=== PATIENT | male | born 1955 | race Caucasian/White ===

== ENCOUNTER 2016-10-15 10:34 | Emergency (ER) | payer BC ==
[2016-10-15 10:58] VITALS: BP 117/77
[2016-10-15] MEDS ORDERED: Bacitracin Oint 1 GM U/D Packet TOP ONE (11:08)
--- NOTE | 2016-10-15 11:34 | EDM.PDOC ---
ED HPI GENERAL MEDICAL PROBLEM - General Chief Complaint: Laceration Stated Complaint: CUT RT HAND Time Seen by Provider: 10/15/16 11:34 Source of Information: Reports: Patient History Limitations: Reports: No Limitations - History of Present Illness INITIAL COMMENTS - FREE TEXT/NARRATIVE: pt cut the palm of his left hand with a piece of metal. Onset: Today Duration: Hour(s): Location: Reports: Upper Extremity, Right Associated Symptoms: Reports: No Other Symptoms - Related Data Allergies Allergy/AdvReac Type Severity Reaction Status Date / Time No Known Allergies Allergy Verified 10/15/16 11:07 Home Meds: Home Meds Aspirin [Halfprin] 81 mg PO DAILY 10/04/15 [History] Rosuvastatin [Crestor] 20 mg PO DAILY 10/04/15 [History] Metoprolol Succinate 25 mg PO DAILY 10/15/16 [History] Past Medical History Cardiovascular History: Reports: Angina Gastrointestinal History: Reports: Chronic Diarrhea - Infectious Disease History Infectious Disease History: Reports: Chicken Pox - Past Surgical History Other Musculoskeletal Surgeries/Procedures:: knee surgery Social & Family History - Tobacco Use Smoking Status *Q: Never Smoker - Recreational Drug Use Recreational Drug Use: No ED ROS GENERAL - Review of Systems Review Of Systems: See Below Constitutional: Reports: No Symptoms HEENT: Reports: No Symptoms Respiratory: Reports: No Symptoms Cardiovascular: Reports: No Symptoms Endocrine: Reports: No Symptoms : Reports: No Symptoms Skin: Reports: Other ( 1 inch laceration on the louise aspect of the rt hand. He cut this on a piece of metal. He is current with his tetanus. ) ED EXAM, SKIN/RASH Exam: See Below Text/Narrative:: pt arrived with a 1 inch cut on the louise aspect of the rt hand. He has normal sensation and normal motion. Exam Limited By: No Limitations General Appearance: Alert, Anxious Ears: Normal External Exam Nose: Normal Inspection Extremities: Other ( Pt has a 1 inch laceration on the louise aspect of his rt hand. ) Psychiatric: Normal Affect Course - Vital Signs Last Recorded V/S: Last Vital Signs Temp 34.8 C L 10/15/16 10:56 Pulse 61 10/15/16 11:09 Resp 16 10/15/16 11:09 BP 117/77 10/15/16 11:09 Pulse Ox 96 10/15/16 11:09 - Orders/Labs/Meds Meds: Medications Discontinued Medications Generic Name Dose Route Start Last Admin Trade Name Niharika PRN Reason Stop Dose Admin Bacitracin 1 dose 10/15/16 11:08 10/15/16 11:26 Bacitracin Oint 1 Gm TOP 10/15/16 11:09 1 dose ONETIME ONE Administration Lidocaine HCl 5 ml 10/15/16 11:07 10/15/16 11:26 Xylocaine-Mpf 1% INJECT 10/15/16 11:08 5 ml ONETIME ONE Administration - Re-Assessments/Exams Free Text/Narrative Re-Assessment/Exam: 10/15/16 11:39 tHE AREA WAS CLEANSED WELL AND INFILTRATED WITH LIDOCAINE. iT WAS CLOSED WITH 5-0 PROLENE. THE WOUND WAS DRESSED WITH BACATRACIN. Departure - Departure Time of Disposition: 11:33 Disposition: Home, Self-Care 01 Condition: Fair Clinical Impression: Laceration - Discharge Information Referrals: PCP,None [Primary Care Provider] - Forms: ED Department Discharge Care Plan Goals: keep dry, apply dry dressing daily, sr in 7-8 days.
== END 2016-10-15 12:06 | disposition home or self-care (01) ==
LOC: JP.ED 10:34
DX: S61.412A Laceration without foreign body of left hand, initial encounter (principal); Z79.82 Long term (current) use of aspirin; Z79.899 Other long term (current) drug therapy; Z98.890 Other specified postprocedural states; W45.8XXA Other foreign body or object entering through skin, initial encounter
CPT/HCPCS: 12001; 99283-25

== ENCOUNTER 2020-04-22 14:27 | Emergency (ER) | payer BC ==
--- NOTE | 2020-04-22 15:26 | EDM.PDOC ---
ED HPI GENERAL MEDICAL PROBLEM - General Chief Complaint: Chest Pain Stated Complaint: CHEST PAINS Time Seen by Provider: 04/22/20 15:19 Source of Information: Reports: Patient, RN Notes Reviewed History Limitations: Reports: No Limitations - History of Present Illness INITIAL COMMENTS - FREE TEXT/NARRATIVE: 64-year-old gentleman presents emergency department with a complaint of chest pain, he states the pain started early this morning around 230 awoken from sleep he tried his inhaler without any relief he had 1 bout of nausea no diaphoresis did feel short of breath. He has a history of coronary artery disease had an angiogram about 10 years ago estimates 1 vessel at 40% it was repeated at 2 years no change, at this time he rates his pain 2 out of 10 declines any pain medication did take aspirin prior to presentation to the emergency department Chest Pain Score (Numeric/FACES): 2 - Related Data Allergies Allergy/AdvReac Type Severity Reaction Status Date / Time No Known Allergies Allergy Verified 04/22/20 14:52 Home Meds: Home Meds Aspirin [Halfprin] 81 mg PO DAILY 10/04/15 [History] Rosuvastatin [Crestor] 20 mg PO DAILY 10/04/15 [History] Metoprolol Succinate 25 mg PO DAILY 10/15/16 [History] Past Medical History HEENT History: Reports: Impaired Vision Cardiovascular History: Reports: Angina Respiratory History: Reports: Asthma, Sleep Apnea Gastrointestinal History: Reports: Chronic Diarrhea Musculoskeletal History: Reports: Other (See Below) Other Musculoskeletal History: right shoulder pain - Infectious Disease History Infectious Disease History: Reports: Chicken Pox - Past Surgical History Cardiovascular Surgical History: Reports: Other (See Below) Other Cardiovascular Surgeries/Procedures: angiogram x 2. GI Surgical History: Reports: Colonoscopy, Hernia, Abdominal, Hernia, Inguinal Other Musculoskeletal Surgeries/Procedures:: right knee surgery Social & Family History - Tobacco Use Tobacco Use Status *Q: Former Tobacco User Used Tobacco, but Quit: Yes Month/Year Tobacco Last Used: 0 - Caffeine Use Caffeine Use: Reports: Coffee - Alcohol Use Days Per Week of Alcohol Use: 4 Number of Drinks Per Day: 2 Total Drinks Per Week: 8 - Recreational Drug Use Recreational Drug Use: No ED ROS GENERAL - Review of Systems Review Of Systems: See Below Constitutional: Reports: No Symptoms. Denies: Diaphoresis HEENT: Reports: No Symptoms Respiratory: Reports: Shortness of Breath Cardiovascular: Reports: Chest Pain, Dyspnea on Exertion GI/Abdominal: Reports: No Symptoms ED EXAM, GENERAL - Physical Exam Exam: See Below Exam Limited By: No Limitations General Appearance: Alert, WD/WN, No Apparent Distress Respiratory/Chest: No Respiratory Distress, Lungs Clear, Normal Breath Sounds, No Accessory Muscle Use, Chest Non-Tender Cardiovascular: Regular Rate, Rhythm, No Murmur GI/Abdominal: Soft, Non-Tender Extremities: No Pedal Edema Course - Vital Signs Last Recorded V/S: Last Vital Signs Temp 97.8 F 04/22/20 14:44 Pulse 77 04/22/20 14:44 Resp 13 04/22/20 14:44 BP 157/66 H 04/22/20 14:44 Pulse Ox 96 04/22/20 14:44 - Orders/Labs/Meds Orders: Active Orders 24 hr Category Date Time Status Cardiac Monitoring [RC] .As Directed Care 04/22/20 15:24 Active EKG Documentation Completion [RC] ASDIRECTED Care 04/22/20 15:24 Active Chest 2V [CR] Stat Exams 04/22/20 15:24 Taken EKG 12 Lead [EK] Stat Ther 04/22/20 15:24 Ordered Labs: Laboratory Tests 04/22/20 04/22/20 Range/Units 15:34 15:34 WBC 8.1 (4.5-11.0) K/uL RBC 4.73 (4.30-5.90) M/uL Hgb 14.5 (12.0-15.0) g/dL Hct 42.7 (40.0-54.0) % MCV 90 (80-98) fL MCH 31 (27-31) pg MCHC 34 (32-36) % Plt Count 211 (150-400) K/uL Neut % (Auto) 69 H (36-66) % Lymph % (Auto) 17 L (24-44) % Young % (Auto) 13 H (2-6) % Eos % (Auto) 1 L (2-4) % Baso % (Auto) 0 (0-1) % Sodium 142 (140-148) mmol/L Potassium 3.9 (3.6-5.2) mmol/L Chloride 107 (100-108) mmol/L Carbon Dioxide 27 (21-32) mmol/L Anion Gap 8.1 (5.0-14.0) mmol/L BUN 16 (7-18) mg/dL Creatinine 1.0 (0.8-1.3) mg/dL Est Cr Clr Drug Dosing 95.29 mL/min Estimated GFR (MDRD) > 60 (>60) Glucose 90 (74-106) mg/dL Calcium 9.0 (8.5-10.1) mg/dL Total Bilirubin 0.6 (0.2-1.0) mg/dL AST 21 (15-37) U/L ALT 40 (12-78) U/L Alkaline Phosphatase 90 (46-116) U/L Troponin I < 0.017 (0.000-0.056) ng/mL Total Protein 6.4 (6.4-8.2) g/dL Albumin 3.4 (3.4-5.0) g/dL Globulin 3.0 (2.3-3.5) g/dL Albumin/Globulin Ratio 1.1 L (1.2-2.2) Departure - Departure Time of Disposition: 16:13 Disposition: Home, Self-Care 01 Condition: Fair Clinical Impression: Atypical chest pain Instructions: Nonspecific Chest Pain, Adult Referrals: Everton Soto MD [Primary Care Provider] - Forms: ED Department Discharge Additional Instructions: Continue with your regular medications, please follow-up with your primary care next week for further evaluation call return to the emergency department for worsening of symptoms Sepsis Event Note (ED) - Evaluation Sepsis Screening Result: No Definite Risk - Focused Exam Vital Signs: Vital Signs Temp Pulse Resp BP Pulse Ox 04/22/20 14:44 97.8 F 77 13 157/66 H 96 - My Orders Last 24 Hours: My Active Orders 04/22/20 15:24 Cardiac Monitoring [RC] .As Directed EKG Documentation Completion [RC] ASDIRECTED Chest 2V [CR] Stat EKG 12 Lead [EK] Stat - Assessment/Plan Last 24 Hours: My Active Orders 04/22/20 15:24 Cardiac Monitoring [RC] .As Directed EKG Documentation Completion [RC] ASDIRECTED Chest 2V [CR] Stat EKG 12 Lead [EK] Stat Plan: Assessment Acuity = acute Site and laterality = atypical chest pain Etiology = suspicious for underlying asthmatic component Manifestations = none Location of injury = Home Lab values = chest x-ray I did review films myself I cannot appreciate any acute process, the official read from radiology is pending CBC CMP lactic acid troponin all within normal limits EKG demonstrates normal sinus rhythm at 74, no atrial enlargement, no ventricular enlargement, no axis deviation, no T wave inversions, no significant ST depressions or elevations, no Q waves noted good R wave progression. Plan He will follow up with his primary care next week for further evaluation This note was dictated using [employer] voice recognition software please call with any questions on syntax or grammar.
[2020-04-22 16:26] VITALS: BP 121/67; PULSE 68
--- NOTE | 2020-04-24 09:01 | CR ---
CHEST: 2 view CLINICAL HISTORY:Chest pain COMPARISON:None FINDINGS: The heart size, pulmonary vascularity and hilar structures are normal. No infiltrate effusion or pneumothorax is seen. IMPRESSION: No acute cardiopulmonary process.
== END 2020-04-22 16:31 | disposition home or self-care (01) ==
LOC: JP.ED 14:27
DX: R07.89 Other chest pain (principal); J45.909 Unspecified asthma, uncomplicated; Z87.891 Personal history of nicotine dependence; Z79.82 Long term (current) use of aspirin; Z79.899 Other long term (current) drug therapy
CPT/HCPCS: 36415; 71046; 71046-26; 80053; 84484; 85025; 93005; 99284; 99285-25

== ENCOUNTER 2022-09-02 18:45 | Emergency (ER) | payer MEDICARE, BC ==
[2022-09-02 19:10] VITALS: BP 139/78; PULSE 63
[2022-09-02] MEDS ORDERED: Diphtheria,Pertussis(Acell),Tetanus Vaccine 0.5 ML Syringe IM ONE (19:43)
== END 2022-09-02 19:59 | disposition home or self-care (01) ==
LOC: JP.ED 18:45
DX: S61.251A Open bite of left index finger without damage to nail, initial encounter (principal); J45.909 Unspecified asthma, uncomplicated; I10 Essential (primary) hypertension; M19.90 Unspecified osteoarthritis, unspecified site; Z87.891 Personal history of nicotine dependence; Z79.82 Long term (current) use of aspirin; Z79.899 Other long term (current) drug therapy; W53.01XA Bitten by mouse, initial encounter
CPT/HCPCS: 90471; 90715; 99283-25

== ENCOUNTER 2025-01-26 09:31 | Day surgery (SDC) | payer MEDICARE ==
[~2025-01-26 09:31] MED LIST: Dexamethasone 4 MG/ML SDV ONE; Ondansetron 4 MG/2 ML SDV ONE; Propofol 200 MG/20 ML SDV ONE; Succinylcholine 200 MG/10 ML MDV ONE; fentaNYL 250 MCG/5 ML SDV ONE
[2025-01-26 10:00] LABS: PLATELET COUNT,PLT 204.0 K/uL (130-375); RED BLOOD CELL COUNT 4.95 M/uL (4.14-5.76); WHITE BLOOD CELL COUNT,WBC 6.5 K/uL (3.2-11.0)
[2025-01-26 10:20] LABS: BLOOD UREA NITROGEN,BUN 18 mg/dL (7-18); CARBON DIOXIDE,CO2 29 mmol/L (21-32); CHLORIDE,CL 105 mmol/L (100-108); CREATININE 1.0 mg/dL (0.8-1.3); ESTIMATED GFR 82 mL/min (>60); GLUCOSE RANDOM 104 mg/dL (74-106); POTASSIUM,K 4.1 mmol/L (3.6-5.2); SODIUM,NA 142 mmol/L (140-148)
[2025-01-26] MEDS: Lactated Ringers 1,000 ML IV SCH (10:53)
[2025-01-26] MEDS: Nozin Nasal Sanitizer NASBOTH ONE (10:54)
[2025-01-26] MEDS ORDERED: Glycopyrrolate 0.2 MG/ML 5 ML MDV ONE (15:05)
[2025-01-26] MEDS ORDERED: Acetaminophen/oxyCODONE 325-5 MG Tab PO PRN (16:15)
[2025-01-26 18:18] VITALS: BP 148/70; PULSE 60
== END 2025-01-26 18:20 | disposition home or self-care (01) ==
LOC: JP.SDS 09:31
PROVIDERS: ATTEND Specialist
DX: M75.121 Complete rotator cuff tear or rupture of right shoulder, not specified as traumatic (principal); M75.41 Impingement syndrome of right shoulder; M19.011 Primary osteoarthritis, right shoulder; D17.21 Benign lipomatous neoplasm of skin and subcutaneous tissue of right arm; S46.111A Strain of muscle, fascia and tendon of long head of biceps, right arm, initial encounter; I10 Essential (primary) hypertension; X58.XXXA Exposure to other specified factors, initial encounter; Z79.899 Other long term (current) drug therapy
CPT/HCPCS: 01630-QZ; 36415; 80048; 85027; 88304; A9270-GY; C1713; J0330; J0665; J0690; J1100; J1596; J2405; J2704; J3010; J3490; J7120